=== PATIENT | male | born 1940 | race Caucasian/White ===

== ENCOUNTER 2024-12-27 12:04 | Observation (INO) | payer MEDICARE ==
[2024-12-27 12:41] LABS: BASOPHILS ABSOLUTE AUTO 0.07 K/uL (0.00-0.10); BASOPHILS PERCENT AUTO 1.1 % (0.1-1.3); EOSINOPHILS ABSOLUTE AUTO 0.08 K/uL (0.00-0.40); EOSINOPHILS PERCENT AUTO 1.2 % (0.0-5.4); HEMATOCRIT 31.6 % (38.4-49.7); HEMOGLOBIN 10.7 g/dL (12.9-16.9); IMMATURE GRAN PERCENT AUTO 0.3 % (0.0-0.7); LYMPHOCYTES ABSOLUTE AUTO 1.06 K/uL (0.8-3.3); LYMPHOCYTES PERCENT AUTO 16.5 % (11.4-47.7); MEAN CORPUSCULAR HEMOGLOBIN 34.9 pg (31.6-35.5); MEAN CORPUSCULAR HGB CONC 33.9 g/dL (31.6-35.5); MEAN CORPUSCULAR VOLUME 102.9 fL (81.4-99.0); MONOCYTES ABSOLUTE AUTO 0.71 K/uL (0.20-0.90); NEUTROPHILS ABSOLUTE AUTO 4.49 K/uL (1.0-7.6); NEUTROPHILS PERCENT AUTO 69.9 % (40.0-78.1); PLATELET COUNT,PLT 230 K/uL (130-375); RED BLOOD CELL COUNT 3.07 M/uL (4.14-5.76); WHITE BLOOD CELL COUNT,WBC 6.4 K/uL (3.2-11.0)
[2024-12-27 12:42] LABS: IMMATURE GRAN ABSOLUTE AUTO 0.02 K/uL (0.00-0.23)
[2024-12-27 13:13] LABS: ALANINE AMINOTRANSFERASE,ALT 17 U/L (12-78); ALKALINE PHOSPHATASE 113 U/L (46-116); ANION GAP 9.7 mmol/L (5.0-14.0); ASPARTATE AMNIOTRANSFERASE,AST 20 U/L (15-37); BILIRUBIN TOTAL 0.3 mg/dL (0.2-1.0); BLOOD UREA NITROGEN,BUN 21 mg/dL (7-18); CALCIUM 8.6 mg/dL (8.5-10.1); CARBON DIOXIDE,CO2 27 mmol/L (21-32); CHLORIDE,CL 103 mmol/L (100-108); CREATININE 1.3 mg/dL (0.8-1.3); EST CRCL DRUG DOSING (CG) 49.18 mL/min; ESTIMATED GFR 54 mL/min (>60); GLUCOSE RANDOM 98 mg/dL (74-106); POTASSIUM,K 3.6 mmol/L (3.6-5.2); PROTEIN TOTAL,TP 6.1 g/dL (6.4-8.2); SODIUM,NA 140 mmol/L (140-148)
[2024-12-27 14:02] LABS: APPEARANCE,URINE CLOUDY (CLEAR); BILIRUBIN,URINE NEGATIVE (NEGATIVE); COLOR,URINE YELLOW (YELLOW); GLUCOSE,URINE NEGATIVE (NEGATIVE); KETONES,URINE NEGATIVE (NEGATIVE); LEUKOCYTE ESTERASE,URINE MODERATE (NEGATIVE); NITRITE,URINE NEGATIVE (NEGATIVE); OCCULT BLOOD,URINE NEGATIVE (NEGATIVE); PH,URINE 5.5 (5.0-8.0); PROTEIN,URINE NEGATIVE (NEGATIVE); UROBILINOGEN,URINE 0.2 EU/dL (0.2-1.0)
[2024-12-27 14:08] LABS: AMORPHOUS SEDIMENT,URINE FEW; BACTERIA,URINE RARE; EPITHELIAL CELLS,URINE NOT SEEN; MUCUS,URINE NOT SEEN; RBC,URINE NOT SEEN (0-5)
[2024-12-27] MEDS ORDERED: Sodium Chloride 0.9% 10 ML Syringe FLUSH PRN ×2 (14:44→16:05)
[2024-12-27] MEDS ORDERED: oxyCODONE 5 MG Tab PO PRN (16:05)
[2024-12-27] MEDS ORDERED: Polyethylene Glycol 3350 Powder 17 GM Packet PO PRN (16:05)
[2024-12-27] MEDS ORDERED: Ondansetron 4 MG/2 ML SDV IV PRN (16:05)
[2024-12-27] MEDS: Sodium Chloride 0.9% 1,000 ML IV SCH (17:40)
[2024-12-27] MEDS: Enoxaparin 40 MG/0.4 ML Syringe SUBCUT SCH (17:40)
[2024-12-27] MEDS: Melatonin 3 MG Tab PO SCH (23:16)
[2024-12-27] MEDS: Haloperidol 1 MG Tab PO PRN (23:16)
[2024-12-28 05:56] LABS: HEMATOCRIT 28.7 % (38.4-49.7); HEMOGLOBIN 9.9 g/dL (12.9-16.9); MEAN CORPUSCULAR HEMOGLOBIN 35.6 pg (31.6-35.5); MEAN CORPUSCULAR HGB CONC 34.5 g/dL (31.6-35.5); MEAN CORPUSCULAR VOLUME 103.2 fL (81.4-99.0); RED BLOOD CELL COUNT 2.78 M/uL (4.14-5.76); WHITE BLOOD CELL COUNT,WBC 5.6 K/uL (3.2-11.0)
[2024-12-28 06:47] LABS: ANION GAP 8.7 mmol/L (5.0-14.0); CALCIUM 8.3 mg/dL (8.5-10.1); CREATININE 1.2 mg/dL (0.8-1.3); EST CRCL DRUG DOSING (CG) 52.07 mL/min; MAGNESIUM 1.8 mg/dL (1.8-2.4); POTASSIUM,K 3.8 mmol/L (3.6-5.2)
[2024-12-28] MEDS: Levothyroxine 50 MCG Tab PO SCH (08:49)
[2024-12-28] MEDS: Citalopram 20 MG Tab PO SCH (08:50)
[2024-12-28] MEDS: Aspirin 325 MG Tab.EC PO SCH (08:51)
[2024-12-28] MEDS: Hydrochlorothiazide 12.5 MG Cap PO SCH (08:52)
[2024-12-28] MEDS: Atenolol 25 MG Tab PO SCH (08:55)
[2024-12-28] MEDS: atorvaSTATin 20 MG Tab PO SCH (08:55)
[2024-12-28] MEDS: Lisinopril 20 MG Tab PO SCH (08:55)
[2024-12-28] MEDS ORDERED: levETIRAcetam 250 MG Tab PO SCH ×2 (09:00)
[2024-12-28] MEDS ORDERED: sulfaSALAzine 500 MG Tab PO SCH ×3 (09:00→12:00)
[2024-12-28] MEDS: levETIRAcetam 250 MG Tab PO ONE (10:46)
[2024-12-28] MEDS: sulfaSALAzine 500 MG Tab PO SCH (20:52)
[2024-12-28] MEDS: levETIRAcetam 250 MG Tab PO SCH (20:52)
[2024-12-29] MEDS: Budesonide 3 MG Cap.ER PO SCH (11:12)
== END 2024-12-30 19:00 | disposition home health service (06) ==
LOC: JP.ED 12:04 → JP.MS 14:37
PROVIDERS: ADMIT Hospitalist; ATTEND Hospitalist
DX: R53.1 Weakness (principal); F03.90 Unspecified dementia, unspecified severity, without behavioral disturbance, psychotic disturbance, mood disturbance, and anxiety; F32.A Depression, unspecified; I10 Essential (primary) hypertension; E03.9 Hypothyroidism, unspecified; Z79.890 Hormone replacement therapy; Z87.891 Personal history of nicotine dependence; Z79.82 Long term (current) use of aspirin; Z79.899 Other long term (current) drug therapy
CPT/HCPCS: 36415; 71045; 80048; 80053; 81001; 82607; 82746; 83605; 83735; 85025; 85027; 87086; 87088; 97129; 97130; 97161; 97165; 97530; 99284; 99285; A9270; J1650; J7030; 96360; 96361; 96372; 99223; 99233; 99238; G0378

== ENCOUNTER 2025-01-05 23:45 | Observation (INO) | payer MEDICARE ==
[2025-01-06] MEDS ORDERED: Sodium Chloride 0.9% 10 ML Syringe FLUSH PRN (00:01)
[2025-01-06 00:15] LABS: BASOPHILS ABSOLUTE AUTO 0.09 K/uL (0.00-0.10); BASOPHILS PERCENT AUTO 0.7 % (0.1-1.3); EOSINOPHILS ABSOLUTE AUTO 0.16 K/uL (0.00-0.40); EOSINOPHILS PERCENT AUTO 1.2 % (0.0-5.4); HEMATOCRIT 35.5 % (38.4-49.7); HEMOGLOBIN 11.9 g/dL (12.9-16.9); IMMATURE GRAN ABSOLUTE AUTO 0.04 K/uL (0.00-0.23); IMMATURE GRAN PERCENT AUTO 0.3 % (0.0-0.7); LYMPHOCYTES ABSOLUTE AUTO 1.43 K/uL (0.8-3.3); LYMPHOCYTES PERCENT AUTO 10.9 % (11.4-47.7); MEAN CORPUSCULAR HEMOGLOBIN 34.8 pg (31.6-35.5); MEAN CORPUSCULAR HGB CONC 33.5 g/dL (31.6-35.5); MEAN CORPUSCULAR VOLUME 103.8 fL (81.4-99.0); MONOCYTES ABSOLUTE AUTO 1.32 K/uL (0.20-0.90); NEUTROPHILS ABSOLUTE AUTO 10.12 K/uL (1.0-7.6); NEUTROPHILS PERCENT AUTO 76.9 % (40.0-78.1); PLATELET COUNT,PLT 244 K/uL (130-375); RED BLOOD CELL COUNT 3.42 M/uL (4.14-5.76); WHITE BLOOD CELL COUNT,WBC 13.2 K/uL (3.2-11.0)
[2025-01-06 00:33] LABS: A/G RATIO 1.1 (1.2-2.2); ALANINE AMINOTRANSFERASE,ALT 20 U/L (12-78); ALBUMIN 3.5 g/dL (3.4-5.0); ALKALINE PHOSPHATASE 122 U/L (46-116); ASPARTATE AMNIOTRANSFERASE,AST 21 U/L (15-37); BILIRUBIN TOTAL 0.4 mg/dL (0.2-1.0); BLOOD UREA NITROGEN,BUN 28 mg/dL (7-18); CALCIUM 9.2 mg/dL (8.5-10.1); CARBON DIOXIDE,CO2 25 mmol/L (21-32); CHLORIDE,CL 103 mmol/L (100-108); CREATININE 1.7 mg/dL (0.8-1.3); ESTIMATED GFR 39 mL/min (>60); GLUCOSE RANDOM 167 mg/dL (74-106); POTASSIUM,K 3.5 mmol/L (3.6-5.2); PROTEIN TOTAL,TP 6.8 g/dL (6.4-8.2); SODIUM,NA 142 mmol/L (140-148)
[2025-01-06 00:34] LABS: ANION GAP 17.5 mmol/L (5.0-14.0)
[2025-01-06 00:42] LABS: LACTIC ACID 3.9 mmol/L (0.4-2.0)
[2025-01-06] MEDS: Sodium Chloride 0.9% 1,000 ML IV SCH ×3 (00:50→04:37)
[2025-01-06] MEDS: Ondansetron 4 MG/2 ML SDV IVPUSH ONE (01:00)
[2025-01-06] MEDS: levETIRAcetam 1,000 MG in Sodium Chloride 0.9% 100 ML IV ONE (01:05)
[2025-01-06] MEDS: levETIRAcetam 500 MG/5 ML SDV IVPUSH ONE (01:05)
[2025-01-06] MEDS: Sodium Chloride 0.9% 100 ML ONE (01:05)
[2025-01-06 01:48] LABS: APPEARANCE,URINE SLIGHTLY CLOUDY (CLEAR); BILIRUBIN,URINE NEGATIVE (NEGATIVE); COLOR,URINE YELLOW (YELLOW); GLUCOSE,URINE NEGATIVE (NEGATIVE); KETONES,URINE NEGATIVE (NEGATIVE); LEUKOCYTE ESTERASE,URINE SMALL (NEGATIVE); NITRITE,URINE NEGATIVE (NEGATIVE); OCCULT BLOOD,URINE NEGATIVE (NEGATIVE); PH,URINE 5.5 (5.0-8.0); PROTEIN,URINE TRACE mg/dL (NEGATIVE); UROBILINOGEN,URINE 0.2 EU/dL (0.2-1.0)
[2025-01-06 02:01] LABS: AMORPHOUS SEDIMENT,URINE FEW; BACTERIA,URINE FEW; EPITHELIAL CELLS,URINE FEW; MUCUS,URINE NOT SEEN; RBC,URINE 0-5 (0-5)
[2025-01-06] MEDS ORDERED: Ondansetron 4 MG/2 ML SDV IV PRN (03:29)
[2025-01-06] MEDS ORDERED: Acetaminophen 325 MG Tab PO PRN (03:29)
[2025-01-06] MEDS ORDERED: LORazepam 2 MG/ML SDV IVPUSH PRN (03:29)
[2025-01-06] MEDS ORDERED: Magnesium Hydroxide 400 MG/5 ML Susp 30 ML Cup PO PRN (03:29)
[2025-01-06] MEDS ORDERED: Sennosides/Docusate Sodium 50-8.6 MG Tab PO PRN (03:29)
[2025-01-06] MEDS ORDERED: Ondansetron 4 MG Tab.DIS PO PRN (03:29)
[2025-01-06] MEDS ORDERED: Melatonin 3 MG Tab PO PRN (03:29)
[2025-01-06] MEDS: cefTRIAXone 1 GM in Sodium Chloride 0.9% 50 ML IV SCH (04:38)
[2025-01-06 05:55] LABS: HEMATOCRIT 30.3 % (38.4-49.7); HEMOGLOBIN 10.1 g/dL (12.9-16.9); MEAN CORPUSCULAR HEMOGLOBIN 34.8 pg (31.6-35.5); MEAN CORPUSCULAR HGB CONC 33.3 g/dL (31.6-35.5); MEAN CORPUSCULAR VOLUME 104.5 fL (81.4-99.0); RED BLOOD CELL COUNT 2.9 M/uL (4.14-5.76); WHITE BLOOD CELL COUNT,WBC 10.9 K/uL (3.2-11.0)
[2025-01-06 06:30] LABS: ANION GAP 12.5 mmol/L (5.0-14.0); CALCIUM 8.2 mg/dL (8.5-10.1); CREATININE 1.3 mg/dL (0.8-1.3); EST CRCL DRUG DOSING (CG) 47.14 mL/min; MAGNESIUM 1.7 mg/dL (1.8-2.4); POTASSIUM,K 3.5 mmol/L (3.6-5.2); TSH ULTRASENSITIVE 2.648 uIU/mL (0.358-3.740)
[2025-01-06] MEDS: Citalopram 20 MG Tab PO SCH (08:48)
[2025-01-06] MEDS: Budesonide 3 MG Cap.ER PO SCH (08:48)
[2025-01-06] MEDS: atorvaSTATin 20 MG Tab PO SCH (08:48)
[2025-01-06] MEDS: levETIRAcetam 250 MG Tab PO SCH (08:48)
[2025-01-06] MEDS: Aspirin 325 MG Tab.EC PO SCH (08:49)
[2025-01-06] MEDS: Atenolol 25 MG Tab PO SCH (08:49)
[2025-01-06] MEDS: Enoxaparin 40 MG/0.4 ML Syringe SUBCUT SCH (08:49)
[2025-01-06] MEDS: Lisinopril 20 MG Tab PO SCH (08:49)
[2025-01-06] MEDS: Levothyroxine 50 MCG Tab PO SCH (08:49)
[2025-01-06] MEDS: Lactobacillus Rhamnosus GG (Probiotic) Cap PO SCH (08:50)
[2025-01-06] MEDS: Hydrochlorothiazide 12.5 MG Cap PO SCH (08:50)
[2025-01-06] MEDS: sulfaSALAzine 500 MG Tab PO SCH (08:50)
[2025-01-06] MEDS ORDERED: levETIRAcetam 250 MG Tab PO SCH (09:00)
[2025-01-06] MEDS ORDERED: Haloperidol Lactate 5 MG/ML SDV IVPUSH PRN (13:56)
[2025-01-06] MEDS: Melatonin 3 MG Tab PO SCH (20:32)
[2025-01-07 05:45] LABS: HEMATOCRIT 28.5 % (38.4-49.7); HEMOGLOBIN 9.5 g/dL (12.9-16.9); MEAN CORPUSCULAR HEMOGLOBIN 34.3 pg (31.6-35.5); MEAN CORPUSCULAR HGB CONC 33.3 g/dL (31.6-35.5); MEAN CORPUSCULAR VOLUME 102.9 fL (81.4-99.0); RED BLOOD CELL COUNT 2.77 M/uL (4.14-5.76); WHITE BLOOD CELL COUNT,WBC 7.2 K/uL (3.2-11.0)
[2025-01-07 06:02] LABS: CALCIUM 8.4 mg/dL (8.5-10.1); CREATININE 1.1 mg/dL (0.8-1.3); EST CRCL DRUG DOSING (CG) 56.45 mL/min; POTASSIUM,K 3.7 mmol/L (3.6-5.2)
== END 2025-01-07 16:45 | disposition home or self-care (01) ==
LOC: JP.ED 23:45 → JP.MS 01-06 02:53
PROVIDERS: ADMIT Registered Nurse; ATTEND Internal Medicine
DX: R56.9 Unspecified convulsions (principal); N39.0 Urinary tract infection, site not specified; G30.9 Alzheimer's disease, unspecified; F02.818 Dementia in other diseases classified elsewhere, unspecified severity, with other behavioral disturbance; N17.9 Acute kidney failure, unspecified; I10 Essential (primary) hypertension; E03.9 Hypothyroidism, unspecified; Z87.891 Personal history of nicotine dependence; Z79.890 Hormone replacement therapy; Z79.899 Other long term (current) drug therapy
CPT/HCPCS: 36415; 70450; 71045; 71045-26; 80048; 80053; 81001; 83605; 83735; 84443; 84484; 85025; 85027; 93005; 93010; 96361; 96374; 96375; 97161-GP; 99222; 99238; 99285; 99285-25; A9270-GY; J0696; J1650; J1953; J2405; J7030

== ENCOUNTER 2025-03-23 13:53 | Emergency (ER) | payer MEDICARE ==
[2025-03-23] MEDS ORDERED: Sodium Chloride 0.9% 10 ML Syringe FLUSH PRN (14:03)
[2025-03-23 14:16] LABS: BASOPHILS ABSOLUTE AUTO 0.08 K/uL (0.00-0.10); BASOPHILS PERCENT AUTO 1.1 % (0.1-1.3); EOSINOPHILS ABSOLUTE AUTO 0.17 K/uL (0.00-0.40); EOSINOPHILS PERCENT AUTO 2.3 % (0.0-5.4); HEMATOCRIT 32.4 % (38.4-49.7); HEMOGLOBIN 10.3 g/dL (12.9-16.9); IMMATURE GRAN PERCENT AUTO 0.3 % (0.0-0.7); LYMPHOCYTES ABSOLUTE AUTO 1.05 K/uL (0.8-3.3); LYMPHOCYTES PERCENT AUTO 14.2 % (11.4-47.7); MEAN CORPUSCULAR HGB CONC 31.8 g/dL (31.6-35.5); MEAN CORPUSCULAR VOLUME 103.8 fL (81.4-99.0); MONOCYTES ABSOLUTE AUTO 0.89 K/uL (0.20-0.90); NEUTROPHILS ABSOLUTE AUTO 5.18 K/uL (1.0-7.6); NEUTROPHILS PERCENT AUTO 70.1 % (40.0-78.1); PLATELET COUNT,PLT 230 K/uL (130-375); RED BLOOD CELL COUNT 3.12 M/uL (4.14-5.76); WHITE BLOOD CELL COUNT,WBC 7.4 K/uL (3.2-11.0)
[2025-03-23] MEDS: Sodium Chloride 0.9% 100 ML IV ONE (14:26)
[2025-03-23] MEDS: Sodium Chloride 0.9% 10 ML Syringe FLUSH PRN (14:27)
[2025-03-23] MEDS: Iopamidol 755 Mg/ML 100 ML Bottle IV SCH (14:27)
[2025-03-23 14:28] LABS: IMMATURE GRAN ABSOLUTE AUTO 0.02 K/uL (0.00-0.23)
[2025-03-23 14:38] LABS: INR 1.2; PTT,PARTIAL THROMBOPLSTIN TIME 22.6 sec (21.8-27.3)
[2025-03-23 14:43] LABS: CALCIUM 8.1 mg/dL (8.5-10.1); CREATININE 1.5 mg/dL (0.8-1.3); EST CRCL DRUG DOSING (CG) 41.16 mL/min; POTASSIUM,K 3.3 mmol/L (3.6-5.2); TROPONIN I HIGH SENSITIVITY 20.2 pg/mL (<=60.3)
[2025-03-23 14:45] LABS: ANION GAP 13.3 mmol/L (5.0-14.0)
[2025-03-23] MEDS: Sodium Chloride 0.9% 1,000 ML IV ONE (15:38)
== END 2025-03-23 16:45 | disposition home or self-care (01) ==
LOC: JP.ED 13:53
DX: R47.1 Dysarthria and anarthria (principal); R79.1 Abnormal coagulation profile; I10 Essential (primary) hypertension; E03.9 Hypothyroidism, unspecified; Z79.82 Long term (current) use of aspirin; Z79.899 Other long term (current) drug therapy; Z79.890 Hormone replacement therapy; Z79.01 Long term (current) use of anticoagulants
CPT/HCPCS: 36415; 70450; 70496; 70498; 80048; 82947; 84484; 85025; 85610; 85730; 93005; 96360; 99285; J7030; Q9967; 93010; 99284